=== PATIENT | male | born 1990 | race African-American/Black ===

== ENCOUNTER 2019-03-26 20:16 | Emergency (ER) | payer OTHER ==
[2019-03-26] MEDS ORDERED: LORAZEPAM 1 MG TABLET PO ONE (22:33)
--- NOTE | 2019-03-26 22:35 | ER Document Report ---
ED General - General Chief Complaint: Depression Stated Complaint: IVC Time Seen by Provider: 03/26/19 22:32 Mode of Arrival: Ambulatory Information source: Patient, Law Enforcement, [facility] Records Notes: 28-year-old male with no reported past medical history presents in [employer] custody with IVC paperwork in place. Patient presented to the [facility] today and requested help for depression and suicidal ideation. He states that he has had fleeting thoughts of killing himself by hanging but was talked out of it by his brother. Patient does report a history of heavy drinking but states that it has been approximately 1 year since he has been drinking. Patient was discharged from the where he was living on [address] and was intermittently homeless. He currently has several roommates. Patient reports that he is very obsessive when it comes to his routine, work. Patient has no established psychiatric diagnosis. He denies any previous psychiatric hospitalizations. TRAVEL OUTSIDE OF THE [place] IN LAST 30 DAYS: No - HPI Onset: Other Onset/Duration: Gradual Quality of pain: Achy Severity: Mild Associated symptoms: Headache. denies: Chest pain, Fever, Nausea, Vomiting, Shortness of breath Exacerbated by: Denies Relieved by: Denies Similar symptoms previously: Yes Recently seen / treated by doctor: No - Related Data Allergies/Adverse Reactions: No Known Allergies Allergy (Unverified 03/26/19 22:29) Past Medical History - General Information source: Patient - Social History Smoking Status: Former Smoker Chew tobacco use (# tins/day): No Frequency of alcohol use: Social Drug Abuse: None Lives with: Friend Family History: Reviewed & Not Pertinent Patient has suicidal ideation: Yes Patient has homicidal ideation: No Renal/ Medical History: Denies: Hx Peritoneal Dialysis Review of Systems - Review of Systems Notes: REVIEW OF SYSTEMS: CONSTITUTIONAL : Denies fever, chills, or sweats. Denies recent illness. Denies weight loss, recent hospitalizations. EENT: Denies visual changes, eye pain. Denies sore throat, oral lesions, difficulty swallowing. CARDIOVASCULAR: Denies chest pain. Denies palpitations. Denies lower extremity edema. RESPIRATORY: Denies cough. Denies shortness of breath, wheezing. GASTROINTESTINAL: Denies abdominal pain or distention. Denies nausea, vomiting, or diarrhea. Denies blood in vomitus, stools, or per rectum. Denies black, tarry stools. Denies constipation. GENITOURINARY: Denies difficulty urinating, painful urination, frequency, blood in urine, testicular pain or penile discharge. MUSCULOSKELETAL: Denies back or neck pain or stiffness. Denies joint pain or swelling. SKIN: Denies rash, lesions or sores. HEMATOLOGIC : Denies easy bruising or bleeding. LYMPHATIC: Denies swollen glands. NEUROLOGICAL: Denies confusion or altered mental status. Denies loss of consciousness. Denies dizziness or lightheadedness. Denies headache. Denies weakness or paralysis. Denies problems difficulty with ambulation, slurred sp eech. Denies sensory loss, numbness, or tingling. Denies seizures. PSYCHIATRIC: + anxiety or stress. Admits to suicidal ideation. Physical Exam - Notes Notes: PHYSICAL EXAMINATION: GENERAL: Well-appearing, well-nourished and in no acute distress. HEAD: Atraumatic, normocephalic. EYES: Pupils equal round and reactive to light, extraocular movements intact, sclera anicteric, conjunctiva are normal. ENT: Nares patent, oropharynx clear without exudates. Moist mucous membranes. NECK: Normal range of motion, supple without lymphadenopathy LUNGS: Breath sounds clear to auscultation bilaterally and equal. No wheezes rales or rhonchi. HEART: Regular rate and rhythm without murmurs ABDOMEN: Soft, nontender, nondistended abdomen. No guarding, no rebound. No masses appreciated. Musculoskeletal: Normal range of motion, no pitting or edema. No cyanosis. NEUROLOGICAL: Cranial nerves grossly intact. Normal speech, normal gait. Normal sensory, motor exams PSYCH: Admits to suicidal ideation, depression, anxiety. Denies homicidal ideation, visual or auditory hallucination. SKIN: Warm, Dry, normal turgor, no rashes or lesions noted. Course - Re-evaluation Re-evalutation: 03/27/19 01:06 Laboratory 03/26/19 03/26/19 03/26/19 22:46 22:46 23:50 WBC 8.2 RBC 4.90 Hgb 14.0 Hct 41.9 MCV 86 MCH 28.5 MCHC 33.4 RDW 13.2 Plt Count 282 Seg Neutrophils % 50.5 Lymphocytes % 40.5 Monocytes % 6.0 Eosinophils % 2.4 Basophils % 0.6 Absolute Neutrophils 4.1 Absolute Lymphocytes 3.3 Absolute Monocytes 0.5 Absolute Eosinophils 0.2 Absolute Basophils 0.1 Sodium Potassium Chloride Carbon Dioxide Anion Gap BUN Creatinine Est GFR ( Amer) Est GFR (Non-Af Amer) Glucose Calcium Total Bilirubin Direct Bilirubin Neonat Total Bilirubin Neonat Direct Bilirubin Neonat Indirect Bili AST ALT Alkaline Phosphatase Total Protein Albumin Urine Color YELLOW Urine Appearance CLEAR Urine pH 6.0 Ur Specific [place] 1.023 Urine Protein NEGATIVE Urine Glucose (UA) NEGATIVE Urine Ketones NEGATIVE Urine Blood NEGATIVE Urine Nitrite NEGATIVE Urine Bilirubin NEGATIVE Urine Urobilinogen 2.0 H Ur Leukocyte Esterase NEGATIVE Urine WBC (Auto) 1 Urine RBC (Auto) 0 U Hyaline Cast (Auto) 2 Urine Bacteria (Auto) TRACE Squamous Epi Cells Auto <1 Urine Mucus (Auto) MOD Urine Ascorbic Acid NEGATIVE Salicylates Urine Opiates Screen NEGATIVE Urine Methadone Screen NEGATIVE Acetaminophen Ur Barbiturates Screen NEGATIVE Ur Phencyclidine Scrn NEGATIVE Ur Amphetamines Screen NEGATIVE U Benzodiazepines Scrn NEGATIVE Urine Cocaine Screen NEGATIVE U Marijuana (THC) Screen NEGATIVE Serum Alcohol 03/26/19 23:50 WBC RBC Hgb Hct MCV MCH MCHC RDW Plt Count Seg Neutrophils % Lymphocytes % Monocytes % Eosinophils % Basophils % Absolute Neutrophils Absolute Lymphocytes Absolute Monocytes Absolute Eosinophils Absolute Basophils Sodium 140.4 Potassium 4.2 Chloride 99 Carbon Dioxide 27 Anion Gap 14 BUN 13 Creatinine 1.09 Est GFR ( Amer) > 60 Est GFR (Non-Af Amer) > 60 Glucose 159 H Calcium 10.0 Total Bilirubin 0.6 Direct Bilirubin 0.2 Neonat Total Bilirubin Not Reportable Neonat Direct Bilirubin Not Reportable Neonat Indirect Bili Not Reportable AST 22 ALT 23 Alkaline Phosphatase 47 Total Protein 7.7 Albumin 4.4 Urine Color Urine Appearance Urine pH Ur Specific [place] Urine Protein Urine Glucose (UA) Urine Ketones Urine Blood Urine Nitrite Urine Bilirubin Urine Urobilinogen Ur Leukocyte Esterase Urine WBC (Auto) Urine RBC (Auto) U Hyaline Cast (Auto) Urine Bacteria (Auto) Squamous Epi Cells Auto Urine Mucus (Auto) Urine Ascorbic Acid Salicylates < 1.0 L Urine Opiates Screen Urine Methadone Screen Acetaminophen < 10 L Ur Barbiturates Screen Ur Phencyclidine Scrn Ur Amphetamines Screen U Benzodiazepines Scrn Urine Cocaine Screen U Marijuana (THC) Screen Serum Alcohol < [address] 03/26/19 22:45 IMPRESSION: 1. No acute intracranial abnormality identified. This exam was performed according to our departmental dose-optimization program, which includes automated exposure control, adjustment of the mA and/or kV according to patient size and/or use of iterative reconstruction technique. 28-year-old male presents in police custody with IVC paperwork in place. Vital signs reviewed upon arrival and within normal limits. Patient does not appear toxic or dehydrated. He is in no acute distress. He does admit to suicidal ideation, increased depression and anxiety over the last year. He states that his plan was to hang himself but his brother talked him out of that. Patient has been cooperative throughout his ED course. No significant laboratory findings. CT of the head was obtained due to the patient's complaint of chronic and worsening headaches, this was within normal limits. Patient cleared for ev aluation by [facility]. - Laboratory Result Diagrams: 03/26/19 23:50 03/26/19 23:50 Laboratory results interpreted by me: 03/26/19 03/26/19 22:46 23:50 Glucose 159 H Urine Urobilinogen 2.0 H Salicylates < 1.0 L Acetaminophen < 10 L - Diagnostic Test Radiology reviewed: Image reviewed, Reports reviewed - EKG Interpretation by Me EKG shows normal: Sinus rhythm Rate: Normal Rhythm: NSR Discharge - Discharge Clinical Impression: Suicidal ideation Condition: Good Disposition: OTHER
[2019-03-26] MEDS ORDERED: DIPHENHYDRAMINE HCL 25 MG CAPSULE PO ONE (22:45)
[2019-03-26] MEDS ORDERED: METOCLOPRAMIDE HCL 10 MG TABLET PO ONE (22:45)
[2019-03-26 23:06] LABS: APPEARANCE,URINE CLEAR; BILIRUBIN,URINE NEGATIVE (NEGATIVE); COLOR,URINE YELLOW; GLUCOSE, URINE NEGATIVE (NEGATIVE); KETONES,URINE NEGATIVE (NEGATIVE); LEUKOCYTE ESTERASE,URINE NEGATIVE (NEGATIVE); NITRITE,URINE NEGATIVE (NEGATIVE); PROTEIN,URINE NEGATIVE (NEGATIVE); URINE SPECIFIC GRAVITY 1.023
[2019-03-26 23:20] LABS: URINE AMPHETAMINES SCREEN NEGATIVE; URINE BARBITURATES SCREEN NEGATIVE; URINE BENZODIAZEPINES SCREEN NEGATIVE; URINE COCAINE SCREEN NEGATIVE; URINE MARIJUANA (THC) SCREEN NEGATIVE; URINE METHADONE SCREEN NEGATIVE; URINE PHENCYCLIDINE SCREEN NEGATIVE
--- NOTE | 2019-03-26 23:20 | RADIOLOGY REPORT (SQ) ---
EXAM DESCRIPTION: CT HEAD WITHOUT IV CONTRAST COMPLETED DATE/TME: 03/26/2019 22:45 CLINICAL HISTORY: headache COMPARISON: None available TECHNIQUE: Axial CT of the head obtained from the skull apex to the skull base without contrast. FINDINGS: No acute intracranial hemorrhage identified. No mass, mass effect, shift of the midline, abnormal extra-axial fluid collection or CT evidence of acute ischemic change identified. The ventricular system is unremarkable. No acute abnormalities of the supratentorial white matter, basal ganglia, cerebellum, or brainstem. The visualized paranasal sinuses and the mastoids are clear. No skull fracture identified. Visualized orbits and globes are unremarkable. DLP:1203.40 mGy-cm IMPRESSION: 1. No acute intracranial abnormality identified. This exam was performed according to our departmental dose-optimization program, which includes automated exposure control, adjustment of the mA and/or kV according to patient size and/or use of iterative reconstruction technique.
[2019-03-27 00:10] LABS: ABSOLUTE BASOPHILS # (AUTO) 0.1 10^3/uL (0.0-0.2); ABSOLUTE EOSINOPHILS # (AUTO) 0.2 10^3/uL (0.0-0.6); ABSOLUTE LYMPHOCYTES (AUTO) 3.3 10^3/uL (0.5-4.7); ABSOLUTE MONOCYTES (AUTO) 0.5 10^3/uL (0.1-1.4); ABSOLUTE NEUT (AUTO) 4.1 10^3/uL (1.7-8.2); BASOPHILS % (AUTO) 0.6 % (0-2); EOSINOPHILS % (AUTO) 2.4 % (0-6); HEMATOCRIT 41.9 % (37.9-51.0); LYMPHOCYTES % (AUTO) 40.5 % (13-45); MEAN CORPUSCULAR HEMOGLOBIN 28.5 pg (27.0-33.4); MEAN CORPUSCULAR HGB CONC 33.4 g/dL (32.0-36.0); MEAN CORPUSCULAR VOLUME 86 fl (80-97); PLATELET COUNT 282 10^3/uL (150-450); RED CELL DISTRIBUTION WIDTH 13.2 % (11.5-14.0); SEGMENTED NEUTROPHILS % (AUTO) 50.5 % (42-78); TOTAL CELLS COUNTED % (AUTO) 100 %; WHITE BLOOD COUNT 8.2 10^3/uL (4.0-10.5)
[2019-03-27 00:25] LABS: ALANINE AMINOTRANSFERASE 23 U/L (21-72); ALBUMIN 4.4 g/dL (3.5-5.0); ALKALINE PHOSPHATASE 47 U/L (38-126); ANION GAP 14 (5-19); ASPARTATE AMINO TRANSFERASE 22 U/L (17-59); BILIRUBIN,DIRECT 0.2 mg/dL (0.0-0.4); BILIRUBIN,TOTAL 0.6 mg/dL (0.2-1.3); BLOOD UREA NITROGEN 13 mg/dL (7-20); CARBON DIOXIDE 27 mmol/L (22-30); CHLORIDE 99 mmol/L (98-107); GLUCOSE 159 mg/dL (75-110); POTASSIUM 4.2 mmol/L (3.6-5.0); SODIUM 140.4 mmol/L (137-145); TOTAL PROTEIN 7.7 g/dL (6.3-8.2)
[2019-03-27 00:29] LABS: ACETAMINOPHEN < 10 ug/mL (10-30); ALCOHOL < 10 mg/dL (NONE DETECTED); SALICYLATE < 1.0 mg/dL (2.0-20.0)
--- NOTE | 2019-03-27 18:46 | ER Document Report ---
Doctor's Note Notes: 03/27/19 18:45 Patient is having stable vital signs, labs have been stable. He was evaluated by psychiatry and will continue to observe. We have added medicines. Currently is without distress.
[2019-03-27] MEDS: BUSPIRONE HCL 10 MG TABLET PO SCH (18:57)
[2019-03-27] MEDS: BENZTROPINE MESYLATE 1 MG TABLET PO SCH (18:57)
[2019-03-27] MEDS: OLANZAPINE 5 MG TABLET PO SCH (18:57)
--- NOTE | 2019-03-27 23:03 | EKG REPORT ---
SEVERITY:- BORDERLINE ECG - SINUS ARRHYTHMIA, RATE 62-85 BORDERLINE Q WAVES IN INFERIOR LEADS INFERIOR Q WAVES, PROBABLY NORMAL VARIATION : Confirmed by: Christy Giron 27-Mar-2019 23:02:50
[2019-03-28] MEDS: OLANZAPINE 5 MG TABLET PO SCH (09:29)
[2019-03-28] MEDS: BENZTROPINE MESYLATE 1 MG TABLET PO SCH (09:29)
[2019-03-28] MEDS: BUSPIRONE HCL 10 MG TABLET PO SCH (09:29)
--- NOTE | 2019-03-28 09:43 | PSYCHOLOGICAL NOTE ---
Psych Note - Psych Note Date seen by psych provider: 03/27/19 Time seen by psych provider: 08:24 - Evaluation from . Psych Note: Reason for Consult: [facility], [facility], previous attempts via hanging, criminal charges, recently homeless and history of alcohol use Contact Permissions: Unknown Patient is a 28 year old male who presented to the ED via [facility], [facility], previous SI attempt via hanging, criminal charges, due to criminal charges [place] so homeless, a history of alcohol use and hopelessness. He stated he was in the ED because "I guess I'm going through a bad time, there are lots of things going on" With further questioning about what things are going on or causing stress he commented "all kind of stuff, lots of things all compounding on each other, no good things." He denied current SI and said "once I get rest I am good the next day." He admitted to having thoughts yesterday, talked with [facility] the [facility] the [facility] and said "they were just thoughts." He denied history of SI attempts and said "not reported, there was always someone there to calm me down." He identified he "[facility] with the [facility] 2 weeks ago." He denied having charges and reported "there is an investigation, it is just how my brain is, when I get in trouble I immediately go to defensive mode and think the worst case scenario." He denied current and past medications, previous MH diagnosis and previous MH hospitalizations. He reported a family history of schizophrenia on maternal side. He reported he stopped drinking alcohol "last month, there were children in the home, I would often black out, it was no good." He acknowledged he has a place to live at [address] [place] [address] and has new roommates. He stated if he went home he would lock himself away in his room and sleep. He stated "my mother lives in [place], she does not know about all this and I don't want her to." Patient was alert and oriented to self, person, place and situation. Mood was depressed with flat affect. He presented guarded and not forth coming. He denied current SI/HI, admitted to previous thoughts but someone was always there to calm him down, there is a reported previous attempt via hanging which he did not comment on. He did not appear to be responding to internal stimuli as evidenced by answering questions when addressed and staying on topic however seemed distant as evidenced by blank stare and flat affect. Thought processes seemed linear. Conversational speech was soft in tone. Intellectual abilities are estimated to be average. Insight, judgment and impulse control were poor as e videnced by depressed mood, flat affect, somewhat guarded state and social/legal issues which have already started to affect living arrangement and career/job. Charge Nurse took report from [facility] yesterday prior to patient arrival. It was noted patient was suicidal, has HX of alcohol abuse, has Federal Charges related to [employer] and [employer] taking out legal charges. Diagnosis: V62.5 (Z65.3) Problem Related to Other Legal Circumstances V62.89 (Z65.8) Other Problem Related to Psychosocial Circumstances 311 (F32.9) Unspecified Depressive Disorder Medication recommendations made by the psychiatric medical provider, Dr. Ervin MD., includes: Add Zyprexa 5MG twice a day for mood stabilization/impulse control Add Cogentin 1MG daily to curb tremor side effects often associated with antipsychotic medications Add Buspar 10MG twice a day for anxiety/calming effect/depression/sleep Impression/Plan: Recommendation to maintain IVC given patient had active SI thoughts yesterday, a reported previous SI attempt via hanging and has significant social problems with legal involvement that has affected living arrangements, career/work and is just starting. Will seek inpatient hospitalization with [facility]. Consulted with Dr. Nina regarding the management and care of patient. ED Physician in agreement with recommendations.
--- NOTE | 2019-03-28 10:06 | ER Document Report ---
Doctor's Note Notes: 03/28/19 10:05 Rounds: Chart reviewed and patient interviewed. Patient is being evaluated for depression and suicidal ideation. Also reports a problem with substance abuse of alcohol. Here on an IVC. Lab studies are all essentially normal. Vital signs are all essentially normal. Patient appears to be medically stable for transfer or discharge. Dory Santos
[2019-03-28 15:38] VITALS: BP 113/63
== END 2019-03-28 15:55 | disposition other institution (70) ==
LOC: ER 20:16
DX: R45.851 Suicidal ideations (principal); F32.9 Major depressive disorder, single episode, unspecified; F41.9 Anxiety disorder, unspecified; R51 Headache; Z65.3 Problems related to other legal circumstances; Z65.8 Other specified problems related to psychosocial circumstances; Z87.891 Personal history of nicotine dependence
CPT/HCPCS: 36415; 70450; 80053; 80307; 81001; 85025; 93005; 93010; 99285